=== PATIENT | male | born 1955 | race Caucasian/White ===

== ENCOUNTER 2019-02-20 21:39 | Emergency (ER) | payer OTHER ==
--- NOTE | 2019-02-20 22:15 | ED ---
GI/ HPI - HPI Summary HPI Summary: 63-year-old male presents with hematuria today. He states after he urinates there was a drop of blood in his urine. He denies any pain. He has never had this before. He does have a smoking history. Denies any flank pain. No vomiting or nausea. No abnormal penile discharge. No testicular pain. no abdominal pain. He is on a daily aspirin but denies any blood thinners. no fevers. no injury. He states this has only happened every time he urinated for the past 3 hours. He states it is only after the stream that it happens. He denies any clots. He has history of high blood pressure. - History of Current Complaint Chief Complaint: EDUrogenitalProblems Time Seen by Provider: 02/20/19 21:55 Stated Complaint: BLEED PER PT Pain Intensity: 0 - Allergy/Home Medications Allergies/Adverse Reactions: Allergies Allergy/AdvReac Type Severity Reaction Status Date / Time sulfamethoxazole Allergy GI Upset Verified 02/20/19 21:43 [From Bactrim] trimethoprim [From Bactrim] Allergy GI Upset Verified 02/20/19 21:43 PMH/Surg Hx/FS Hx/Imm Hx Endocrine/Hematology History: Denies: Hx Anticoagulant Therapy Cardiovascular History: Reports: Hx Hypertension Respiratory History: Reports: Hx Asthma, Hx Chronic Obstructive Pulmonary Disease (COPD) Musculoskeletal History: Reports: Hx Rheumatoid Arthritis - FAMILY HISTORY Infectious Disease History: No Infectious Disease History: Denies: Traveled Outside the [place] in Last 30 Days - Family History Known Family History: Positive: Non-Contributory - Social History Alcohol Use: Daily Substance Use Type: Reports: None Hx Tobacco Use: Yes Smoking Status (MU): Heavy Every Day Tobacco Smoker Review of Systems Negative: Fever Negative: Chest Pain Negative: Shortness Of Breath Negative: Abdominal Pain, Vomiting Positive: hematuria. Negative: flank pain All Other Systems Reviewed And Are Negative: Yes Physical Exam Triage Information Reviewed: Yes Vital Signs On Initial Exam: Initial Vitals Temp Pulse Resp BP Pulse Ox 99.9 F 79 18 189/77 93 02/20/19 21:40 02/20/19 21:40 02/20/19 21:40 02/20/19 21:40 02/20/19 21:40 Vital Signs Reviewed: Yes Appearance: Positive: Well-Appearing Skin: Positive: Warm, Dry Head/Face: Positive: Normal Head/Face Inspection Eyes: Positive: Normal, EOMI, MICHAEL, Conjunctiva Clear ENT: Positive: Pharynx normal, TMs normal Respiratory/Lung Sounds: Positive: Clear to Auscultation, Breath Sounds Present Cardiovascular: Positive: Normal, RRR Abdomen Description: Positive: Nontender, Soft. Negative: CVA Tenderness (R), CVA Tenderness (L) Bowel Sounds: Positive: Present Musculoskeletal: Positive: Normal Neurological: Positive: Normal Psychiatric: Positive: Normal Procedures - Sedation Patient Received Moderate/Deep Sedation with Procedure: No Diagnostics - Vital Signs Vital Signs Temp Pulse Resp BP Pulse Ox 02/20/19 21:40 99.9 F 79 18 189/77 93 - Laboratory Result Diagrams: 02/20/19 21:58 02/20/19 21:57 Lab Statement: Any lab studies that have been ordered have been reviewed, and results considered in the medical decision making process. - CT urogram CT Interpretation Completed By: ED Physician Summary of CT Findings: IMPRESSION: 1. Coronary artery calcifications. 2. Old granulomatous disease. 3. Colonic diverticulosis. 4. Infrarenal abdominal aortic aneurysm. 5. 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 Re-Evaluation - Re-Evaluation First Eval Re-Evaluation Time: 00:37 Comment: urinated and no blood GIGU Course/Dx - Course Course Of Treatment: 63-year-old male presents with hematuria today. He states after he urinates there was a drop of blood in his urine. He denies any pain. He has never had this before. He does have a smoking history. Denies any flank pain. No vomiting or nausea. No abnormal penile discharge. No testicular pain. no abdominal pain. He is on a daily aspirin but denies any blood thinners. no fevers. no injury. He states this has only happened every time he urinated for the pat 3 hours. He states it is only after the stream that it happens. He denies any clots. On exam has normal physical exam. wbc 11 cr 1.3. urine shows hematuria. will wait for culture as appears less like an infection. CT urogram shows no mass. told follow up with urology. patient understand and agrees with plan. - Diagnoses Differential Diagnoses - Male: Ureteral Calculi, Urinary Tract Infection, Other - hematuria Provider Diagnoses: Hematuria Discharge ED - Sign-Out/Discharge Documenting (check all that apply): Patient Departure - Discharge Plan Condition: Good Disposition: HOME Patient Education Materials: Hematuria (ED) Referrals: Syed Mendez MD [Primary Care Provider] - Oumar Wang MD [Medical Doctor] - Additional Instructions: drink plenty of fluids follow up with urology Return to ED if unable to urinate, or develop any new or worsening symptoms - Billing Disposition and Condition Condition: GOOD Disposition: Home
[2019-02-20 22:16] LABS: INR 0.91 (0.82-1.09)
[2019-02-20 22:23] LABS: ABS Basophils 0.1 10^3/ul (0-0.2); ABS Eosinophils 0.5 10^3/ul (0-0.6); ABS Lymphocytes 2.5 10^3/ul (1.0-4.8); ABS Monocytes 1.3 10^3/ul (0-0.8); ABS Neutrophils 7.2 10^3/ul (1.5-7.7); Hematocrit 45 % (42-52); Hemoglobin 15.4 g/dL (14.0-18.0); Lymphocyte % 21.4 %; Mean Corpuscular HGB Conc 34 g/dL (31-36); Mean Corpuscular Hemoglobin 31 pg (27-31); Mean Corpuscular Volume 90 fL (80-94); Mean Platelet Volume 7.3 fL (7.4-10.4); Nucleated Red Blood Cells % 0.1; Platelet Count 284 10^3/uL (150-450); Red Blood Count 4.97 10^6 /uL (4.18-5.48); Red Cell Distribution Width 13 % (10-15); White Blood Count 11.6 10^3/uL (3.5-10.8)
[2019-02-20 22:25] LABS: Albumin 4.2 g/dL (3.2-5.2); Albumin/Globulin Ratio 1.6 (1-3); BUN/Creatinine Ratio 16.9 (8-20); C Reactive Protein 10.26 mg/L (<8.01); Calcium 9.3 mg/dL (8.6-10.3); EGFR Non-African American 55.4 (>60); Globulin 2.7 g/dL (2-4); Potassium 3.6 mmol/L (3.5-5.0); Total Bilirubin 0.3 mg/dL (0.2-1.0); Total Protein 6.9 g/dL (6.4-8.9)
[2019-02-20 22:39] LABS: Urine Appearance Cloudy; Urine Bilirubin Negative (Negative); Urine Blood 3+ (Negative); Urine Color Yellow; Urine Glucose Negative (Negative); Urine Ketones Negative (Negative); Urine Nitrite Negative (Negative); Urine Protein 1+(30 mg/dL) (Negative); Urine Specific Gravity 1.012 (1.010-1.030); Urine Urobilinogen Negative (Negative)
[2019-02-20 22:43] LABS: Urine Bacteria Absent (Absent); Urine Red Blood Cell 3+(>10/hpf) (Absent); Urine White Blood Cell 1+(6-10/hpf) (Absent)
[2019-02-20] MEDS ORDERED: Iodixanol* (CONTRAST) 320 MG/ML 100 ML SDV IV ONE (23:05)
[2019-02-21 01:25] VITALS: BP 131/64
== END 2019-02-21 00:43 | disposition home or self-care (01) ==
LOC: ED 21:39
DX: R31.9 Hematuria, unspecified (principal); I10 Essential (primary) hypertension; J44.9 Chronic obstructive pulmonary disease, unspecified; F17.210 Nicotine dependence, cigarettes, uncomplicated
CPT/HCPCS: 36415; 74178; 76377; 80053; 81003; 81015; 85025; 85610; 86140; 87086; 99282; Q9967